=== PATIENT | female | born 1975 | race Two or more races ===

== ENCOUNTER → 2024-10-07 | Outpatient (CLI) | payer MEDICAID, SELFPAY ==
--- NOTE | 2024-10-07 12:30 | XR_ITS ---
Examination: Breast ultrasound, unilateral, right Date and time of exam: October 07, 2024 1225 hours INDICATIONS: Palpable lump right breast on clinical breast examination by physician 2 months ago Technique: Real-time mckeon scale ultrasonographic imaging performed right breast including all 4 quadrants as well as nipple retroareolar and axillary region. Findings: 8:00 cyst 14 x 12 mm 9:00 cyst 3 x 4 mm 10:00 cyst 6 x 5 mm No solid nodules IMPRESSION: BI-RADS Category 2: Benign findings
--- NOTE | 2024-10-07 13:30 | XR_ITS ---
Examination: Diagnostic digital mammography, bilateral Computer aided detection 3-D breast Tomosynthesis, bilateral Date and time of exam: October 07, 2024 1239 hours Comparison December 17, 2013 INDICATIONS: Patient states palpable lump right breast 3 months Technique: Nonmagnified MLO, CC views of the breasts to been obtained, reconstructed from 3-D Tomosynthesis images. R2 computer aided detection program utilized for evaluation of suspicious masses and/or abnormal calcifications. 3-D Tomosynthesis images obtained. Findings: 12 mm nodule partially indistinct margins slightly outer right breast The breasts are heterogeneously dense, which may obscure small masses Impression: BI-RADS Category 0: Incomplete: Need additional imaging evaluation Recommend follow-up spot tomographic views of 12 mm nodule slightly outer right breast as well as right breast sonography to complete the workup
== END | disposition home or self-care (01) ==
DX: R92.8 Other abnormal and inconclusive findings on diagnostic imaging of breast (principal); N63.11 Unspecified lump in the right breast, upper outer quadrant
CPT/HCPCS: 76641; 77062; 77066; G0279